=== PATIENT | female | born 1950 | race Caucasian/White ===

== ENCOUNTER 2017-08-11 08:44 | Outpatient (CLI) | payer OTHER ==
[~2017-08-11 08:44] MED LIST: ATACAND4 MG; SYNTHROID50 MCG
== END 2017-08-11 09:04 | disposition home or self-care (01) ==
LOC: LAB 08:44
DX: E04.2 Nontoxic multinodular goiter (principal); R82.79 Other abnormal findings on microbiological examination of urine

== ENCOUNTER 2019-05-10 09:34 | Outpatient (CLI) | payer OTHER | END 2019-05-10 13:38 | disposition home or self-care (01) | LOC: SONOGRAMA 09:34 → MAMO-SONO 09:45 → SONOGRAMA 13:38 | DX: E06.3 Autoimmune thyroiditis (principal); E04.8 Other specified nontoxic goiter ==

== ENCOUNTER 2024-07-26 19:20 | Emergency (ER) | payer OTHER ==
[~2024-07-26] VITALS: Ht 165.1 cm; Wt 83.9 kg
[2024-07-27] MEDS ORDERED: 0.9 % SODIUM CHLORIDE 1,000 ML IV ONE (00:45)
[2024-07-27 01:13] LABS: HEMATOCRIT 39.1 % (36.0-45.00); HEMOGLOBIN 13.4 g/dL (12.0-15.00); MEAN CELL VOLUME 85.3 fL (80.00-100.00); MEAN CORPUSCULAR HEMOGLOBIN 29.1 pg (27.00-32.0); MEAN CORPUSCULAR HGB CONC 34.1 g/dl (32.0-36.0); PLATELET COUNT 230 K/uL (150-450); RED BLOOD COUNT 4.59 M/uL (4.00-6.00); RED CELL DISTRIBUTION WIDTH 14.6 % (11.5-14.5)
[2024-07-27 01:20] LABS: INR 1.01; PARTIAL THROMBOPLASTIN TIME 29.6 SECONDS (22.0-34.0)
[2024-07-27 01:26] LABS: ALBUMIN 2.6 gm/dL (3.4-5.0); BILIRUBIN TOTAL 0.41 mg/dL (0.3-1.2); BILIRUBIN,CONJUGATED 0.14 mg/dL (0.0-0.2); BILIRUBIN,UNCONJUGATED 0.27 mg/dL (0.0-0.6); CALCIUM 7.6 mg/dL (8.5-10.1); CREATININE SERUM 0.94 mg/dL (0.55-1.02); GFR 58.37; GLOBULINA 3.7 G/DL (2.4-3.5); POTASSIUM 3.38 mEq/L (3.5-5.1); TOTAL PROTEIN 6.3 gm/dL (6.4-8.2)
[2024-07-27 02:41] LABS: URINE APPEARANCE Clear; URINE BILIRRUBIN Negative (NEGATIVE); URINE BLOOD Moderate; URINE COLOR Yellow; URINE KETONE Negative (NEGATIVE); URINE LEUKOCYTE Negative; URINE NITRATE Negative; URINE PROTEIN >=1000 (NEGATIVE); URINE UROBILINOGEN 0.2 E.U./dl
[2024-07-27 02:45] LABS: URINE EPITHELIAL CELLS 13.4 uL (0.0-38.8); URINE RBC 25.1 uL (0.0-20.8); URINE WBC 6.3 uL (0.0-23.2)
[2024-07-27 02:47] LABS: URINE CAST 0.73 uL (0.0-1.40); URINE GLUCOSE 500 MG/DL (NEGATIVE)
[2024-07-27] MEDS ORDERED: PROTECT PLUS S1 EACH PO (05:35)
[2024-07-27] MEDS ORDERED: LEVOTHYROXINE SODIUM 100 MCG TABLET PO ONE (05:45)
== END 2024-07-27 06:59 ==
LOC: ER 19:20
PROVIDERS: General Practice
DX: R53.1 Weakness (principal); Z20.822 Contact with and (suspected) exposure to COVID-19; I10 Essential (primary) hypertension; E03.8 Other specified hypothyroidism; E11.9 Type 2 diabetes mellitus without complications; Z88.6 Allergy status to analgesic agent
CPT/HCPCS: 36415; 70450; 93005; 96365; 96366; 99284; J7030